=== PATIENT | male | born 1940 | race Caucasian/White ===

== ENCOUNTER 2018-11-16 15:52 | Inpatient (IN) | payer MEDICARE, OTHER ==
[2018-11-16] MEDS ORDERED: ALBUTEROL NEB SOL 2.5MG/3ML 1 VIAL SOL NEB PRN (16:00)
[2018-11-16] MEDS: SODIUM CHLORIDE 0.9% FLUSH 10 ML SOL IV SCH (17:32)
[2018-11-16] MEDS: SODIUM CHLORIDE 0.9% 1000ML 1,000 ML IV SCH (17:32)
[2018-11-16] MEDS: METOPROLOL SUCCINATE 50 MG ER TAB PO SCH (22:21)
[2018-11-17] MEDS: SODIUM CHLORIDE 0.9% FLUSH 10 ML SOL IV SCH ×3 (01:14→18:54)
[2018-11-17] MEDS: SODIUM CHLORIDE 0.9% 1000ML 1,000 ML IV SCH (07:22)
[2018-11-17 08:25] LABS: CALCIUM 8.3 mg/dl (8.5-10.1); CARBON DIOXIDE 22.3 mEq/L (21-32); CREATININE 1.28 mg/dl (0.80-1.30); POTASSIUM 4.8 mMol/L (3.5-5.1)
[2018-11-17 08:30] LABS: BASOPHILS % (AUTO) 0 % (0-3); EOSINOPHILS % (AUTO) 0 % (0-9); HEMATOCRIT 38 % (39-53); HEMOGLOBIN 12.4 gm/dl (13.5-17.7); LYMPHOCYTES % (AUTO) 4.6 % (10-50); MEAN CORPUSCULAR HGB CONC 32.3 gm/dl (32.0-36.0); MEAN CORPUSCULAR VOLUME 96 fL (80-100); MONOCYTES % (AUTO) 7.8 % (0-12); NEUTROPHILS % (AUTO) 87.2 % (37-80)
[2018-11-17] MEDS ORDERED: ATORVASTATIN CALCIUM 80 MG TAB PO SCH (09:00)
[2018-11-17] MEDS: ALBUTEROL/IPRATROPIUM 1 VIAL SOL INH SCH ×3 (10:41→21:31)
[2018-11-17] MEDS ORDERED: ATORVASTATIN 10 MG TAB ONE (10:57)
[2018-11-17] MEDS: PANTOPRAZOLE SODIUM 40 MG ECT PO SCH (11:06)
[2018-11-17] MEDS ORDERED: ONDANSETRON 4 MG ODT BU PRN (12:36)
[2018-11-17] MEDS: DEXAMETHASONE 2 MG PO SCH ×2 (13:32→21:45)
[2018-11-17] MEDS: ATORVASTATIN 10 MG TAB PO SCH (13:33)
[2018-11-17] MEDS: MEMANTINE HCL 10 MG PO SCH ×2 (13:33→21:45)
[2018-11-17] MEDS ORDERED: SODIUM CHLORIDE 0.9% 250 ML 250 ML IV ONE (17:29)
[2018-11-17] MEDS: ENOXAPARIN 40 MG SOL SC SCH (19:06)
[2018-11-17] MEDS: METOPROLOL SUCCINATE 50 MG ER TAB PO SCH (21:45)
[2018-11-18] MEDS: SODIUM CHLORIDE 0.9% FLUSH 10 ML SOL IV SCH ×3 (01:59→16:25)
[2018-11-18] MEDS: ALBUTEROL/IPRATROPIUM 1 VIAL SOL INH SCH ×4 (03:57→21:40)
[2018-11-18] MEDS: SODIUM CHLORIDE 0.9% 1000ML 1,000 ML IV SCH ×4 (03:57→21:44)
[2018-11-18 07:50] LABS: BASOPHILS % (AUTO) 0 % (0-3); EOSINOPHILS % (AUTO) 0 % (0-9); HEMATOCRIT 36 % (39-53); HEMOGLOBIN 11.8 gm/dl (13.5-17.7); LYMPHOCYTES % (AUTO) 2.3 % (10-50); MEAN CORPUSCULAR HEMOGLOBIN 31.7 pg (27.0-32.0); MEAN CORPUSCULAR HGB CONC 33.1 gm/dl (32.0-36.0); MEAN CORPUSCULAR VOLUME 96 fL (80-100); MONOCYTES % (AUTO) 5.9 % (0-12); NEUTROPHILS % (AUTO) 91.3 % (37-80)
[2018-11-18 08:05] LABS: ALBUMIN 2.4 gm/dl (3.4-5.0); CARBON DIOXIDE 21.5 mEq/L (21-32); CREATININE 1.22 mg/dl (0.80-1.30); POTASSIUM 4.7 mMol/L (3.5-5.1); TOTAL PROTEIN 6.4 gm/dl (6.4-8.2)
[2018-11-18] MEDS: DEXAMETHASONE 2 MG PO SCH ×2 (11:18→21:45)
[2018-11-18] MEDS: ATORVASTATIN 10 MG TAB PO SCH (11:18)
[2018-11-18] MEDS: PANTOPRAZOLE SODIUM 40 MG ECT PO SCH (11:19)
[2018-11-18] MEDS: MEMANTINE HCL 10 MG PO SCH ×2 (11:19→21:45)
[2018-11-18] MEDS: ENOXAPARIN 40 MG SOL SC SCH (16:25)
[2018-11-18] MEDS: METOPROLOL SUCCINATE 50 MG ER TAB PO SCH (21:44)
[2018-11-18 22:04] VITALS: BP 121/79; RESP 22; TEMP 98.1
[2018-11-19] MEDS: SODIUM CHLORIDE 0.9% FLUSH 10 ML SOL IV SCH (00:50)
[2018-11-19] MEDS: ALBUTEROL/IPRATROPIUM 1 VIAL SOL INH SCH (05:53)
[2018-11-19 05:55] VITALS: PULSE 72; O2SAT 98
[2018-11-19] MEDS: DEXAMETHASONE 2 MG PO SCH (05:55)
[2018-11-19] MEDS: MEMANTINE HCL 10 MG PO SCH (05:55)
[2018-11-19] MEDS: PANTOPRAZOLE SODIUM 40 MG ECT PO SCH (05:56)
[2018-11-19] MEDS: ATORVASTATIN 10 MG TAB PO SCH (05:56)
== END 2018-11-19 06:45 | disposition home or self-care (01) | DRG 206 ==
LOC: ACUTE CARE 16:02
PROVIDERS: ADMIT Family Medicine; ATTEND Family Medicine
DX: R09.02 Hypoxemia (principal); C34.90 Malignant neoplasm of unspecified part of unspecified bronchus or lung; R06.02 Shortness of breath; I95.9 Hypotension, unspecified; I10 Essential (primary) hypertension; E78.5 Hyperlipidemia, unspecified; I25.10 Atherosclerotic heart disease of native coronary artery without angina pectoris; I50.9 Heart failure, unspecified; D72.829 Elevated white blood cell count, unspecified; E86.0 Dehydration; E86.1 Hypovolemia
CPT/HCPCS: 36415; 80048; 80053; 83880; 85025; 94640; 94762; J1650; A9270-GY

== ENCOUNTER 2018-11-28 09:00 | Inpatient (IN) | payer MEDICARE, OTHER ==
[2018-11-28] MEDS ORDERED: ALBUTEROL/IPRATROPIUM 1 VIAL SOL ONE (09:02)
[2018-11-28] MEDS ORDERED: SODIUM CHLORIDE 0.9% 1000ML 1,000 ML IV NR (09:15)
[2018-11-28 09:21] LABS: BASOPHILS % (AUTO) 0 % (0-3); EOSINOPHILS % (AUTO) 0 % (0-9); HEMATOCRIT 41 % (39-53); HEMOGLOBIN 13.6 gm/dl (13.5-17.7); LYMPHOCYTES % (AUTO) 4.2 % (10-50); MEAN CORPUSCULAR HEMOGLOBIN 31.1 pg (27.0-32.0); MEAN CORPUSCULAR HGB CONC 32.9 gm/dl (32.0-36.0); MEAN CORPUSCULAR VOLUME 95 fL (80-100); MONOCYTES % (AUTO) 4.4 % (0-12); NEUTROPHILS % (AUTO) 91.2 % (37-80)
[2018-11-28 09:39] LABS: ALBUMIN 2.5 gm/dl (3.4-5.0); BILIRUBIN,TOTAL 0.9 mg/dl (0.2-1.0); CALCIUM 8.9 mg/dl (8.5-10.1); CARBON DIOXIDE 22.9 mEq/L (21-32); CREATININE 1.17 mg/dl (0.80-1.30); POTASSIUM 4.7 mMol/L (3.5-5.1); TOTAL PROTEIN 7.1 gm/dl (6.4-8.2); TROP I 0.545 ng/ml (0.000-0.056)
[2018-11-28] MEDS ORDERED: SODIUM CHLORIDE 0.9% 1000ML 1,000 ML IV ONE (10:01)
[2018-11-28 10:11] LABS: ABG PH 7.46 (7.35-7.45)
[2018-11-28] MEDS ORDERED: ERTAPENEM SODIUM 1 GM PDS ONE (10:39)
[2018-11-28] MEDS ORDERED: MORPHINE SULFATE 20 MG/1 ML SOL PO PRN (13:15)
[2018-11-28] MEDS ORDERED: MORPHINE SULFATE 10 MG/5 ML SOL ONE (13:38)
[2018-11-28] MEDS ORDERED: MORPHINE SULFATE 10 MG/5 ML SOL PO PRN (13:44)
[2018-11-28] MEDS: ALBUTEROL/IPRATROPIUM 1 VIAL SOL INH SCH ×2 (16:29→20:46)
[2018-11-28 20:37] VITALS: TEMP 98.1
[2018-11-28] MEDS: LORAZEPAM 0.5 MG TAB PO PRN (20:39)
[2018-11-28] MEDS: SODIUM CHLORIDE 0.9% FLUSH 10 ML SOL IV SCH (20:47)
[2018-11-28] MEDS ORDERED: METOPROLOL SUCCINATE 50 MG ER TAB PO SCH ×2 (21:00)
[2018-11-29] MEDS: LORAZEPAM 0.5 MG TAB PO PRN (00:41)
[2018-11-29] MEDS: SODIUM CHLORIDE 0.9% FLUSH 10 ML SOL IV SCH ×2 (00:41→06:26)
[2018-11-29 00:46] VITALS: BP 118/60
[2018-11-29] MEDS: ALBUTEROL/IPRATROPIUM 1 VIAL SOL INH SCH ×2 (03:00→09:26)
[2018-11-29 03:10] VITALS: RESP 24
[2018-11-29 07:27] VITALS: PULSE 85; O2SAT 91
[2018-11-29] MEDS ORDERED: ERTAPENEM SODIUM 1 GM PDS 1 GM in SODIUM CHLORIDE 0.9% 50 ML 50 ML IV SCH (09:00)
[2018-11-29] MEDS ORDERED: DEXAMETHASONE 2 MG PO SCH (09:00)
[2018-11-29] MEDS ORDERED: PANTOPRAZOLE SODIUM 40 MG ECT PO SCH (09:00)
== END 2018-11-29 13:30 | disposition hospice, inpatient (51) | DRG 206 ==
LOC: ED 09:00 → ACUTE CARE 13:53 → UNDOADMIN 13:53 → ACUTE CARE 14:10
PROVIDERS: ADMIT Family Medicine; ATTEND Family Medicine
DX: J90 Pleural effusion, not elsewhere classified (principal); R09.02 Hypoxemia; C34.91 Malignant neoplasm of unspecified part of right bronchus or lung; I50.22 Chronic systolic (congestive) heart failure; R06.02 Shortness of breath; I25.10 Atherosclerotic heart disease of native coronary artery without angina pectoris
CPT/HCPCS: 36415; 36600; 71046; 80053; 82803; 83880; 84484; 85025; 85378; 87040; 93005; 94640; 96365; 96366; 99284; 99291; J1335; A9270-GY; J2270